=== PATIENT | female | born 1985 | race Caucasian/White ===

== ENCOUNTER 2018-01-19 14:27 | Emergency (ER) | payer SELFPAY ==
[~2018-01-19] VITALS: Ht 160 cm; Wt 68.0 kg
[2018-01-19] MEDS ORDERED: CLINDAMYCIN PHOS 600 MG/ 4 ML VIAL IM ONE (16:00)
[2018-01-19] MEDS ORDERED: ONDANSETRON HCL 4 MG ORAL DISINTEGRATING TAB PO ONE (16:30)
[2018-01-19] MEDS ORDERED: ACETAMINOPHEN 325 MG TAB PO ONE (16:30)
[2018-01-19] MEDS ORDERED: IBUPROFEN 200 MG TAB PO ONE (17:00)
[2018-01-19 17:27] VITALS: BP 120/83
== END 2018-01-19 17:33 | disposition home or self-care (01) ==
LOC: ER 14:27
DX: N61.1 Abscess of the breast and nipple (principal); F17.210 Nicotine dependence, cigarettes, uncomplicated; Z88.0 Allergy status to penicillin
CPT/HCPCS: 99283

== ENCOUNTER 2018-05-04 13:28 | Emergency (ER) | payer SELFPAY ==
[~2018-05-04] VITALS: Ht 160 cm; Wt 68.0 kg
[2018-05-04] MEDS ORDERED: CLINDAMYCIN PHOS 900MG/ 50ML 50 ML IV STA (14:10)
[2018-05-04] MEDS ORDERED: LIDOCAINE 1% W/EPINEPHRINE 20 ML VIAL INJ ONE (14:15)
[2018-05-04] MEDS ORDERED: HYDROMORPHONE 2MG/ML 2 MG/ML ML IV NR ×2 (14:30→18:30)
--- NOTE | 2018-05-04 16:16 | NUR ---
NO RESPONSE FROM LOBBY TO BRING BACK TO ROOM FOR DRAINAGE.
--- NOTE | 2018-05-04 16:27 | NUR ---
NO RESPONSE WHEN CALLED FOR TREATMENT.
[2018-05-04] MEDS ORDERED: ULTRAM 50MG50 MG PO (18:44)
[2018-05-04] MEDS ORDERED: CLINDAMYCIN HC300 MG PO (18:44)
[2018-05-04] MEDS ORDERED: HYDROCODONE/APAP 7.5MG-325MG 1 EA TAB PO STA (20:19)
[2018-05-04] MEDS ORDERED: CLINDAMYCIN PHOS 900MG/ 50ML 50 ML IV ONE (20:28)
== END 2018-05-04 21:17 | disposition home or self-care (01) ==
LOC: ER 13:28
DX: L02.415 Cutaneous abscess of right lower limb (principal); L03.115 Cellulitis of right lower limb
CPT/HCPCS: 10060; 99284; J1170